=== PATIENT | male | born 1970 | race Caucasian/White ===

== ENCOUNTER → 2019-09-27 14:03 | Outpatient (CLI) | payer OTHER, SELFPAY ==
[2019-09-27 14:53] LABS: Influenza A - CEPHEID Flu A NEGATIVE (NEGATIVE); Influenza B - CEPHEID Flu B NEGATIVE (NEGATIVE)
== END ==
PROVIDERS: Visit Provider Nurse Practitioner
DX: R68.89 Other general symptoms and signs (principal)
CPT/HCPCS: 87502

== ENCOUNTER 2020-03-02 10:45 | Emergency (ER) | payer OTHER, SELFPAY ==
[2020-03-02 10:55] VITALS: BP 163/94; PULSE 79; RESP 18; TEMP 36.8; O2SAT 99; BMI 30.3
--- NOTE | 2020-03-02 10:57 | DI.CT.S_ITS ---
PROCEDURE: CT SOFT TISSUE NECK W CON INDICATIONS: (R) otitis externa with facial cellulitis, parotid mass absc TECHNIQUE: After the administration of intravenous contrast, 3.0 mm axial sections acquired from the sella to the aortic arch. Additional oblique axial 3.0 mm sections acquired through the pharynx. 3 mm thick coronal and sagittal reformats were generated. For radiation dose reduction, the following was used: automated exposure control. COMPARISON: None. FINDINGS: Image quality: Excellent. These images demonstrates skin thickening and stranding of the subcutaneous fat within the right pre-auricular region overlying the right parotid gland extending superiorly to the zygomatic fossa and the inferiorly to the submandibular region. The inflammatory changes extend deep to involve the platysma which is mildly thickened with adjacent fat stranding on both the superficial and deep aspects. There is lymphadenopathy throughout the right neck and in the suprahyoid and infrahyoid stations anteriorly and posteriorly. No left-sided lymphadenopathy. No supraclavicular lymphadenopathy. Mild engorgement of the right facial and retromandibular veins. Arterial vasculature in the neck is normal in appearance. There is no evidence of a mass or organized fluid collection. The right parotid gland itself is mildly enlarged with intra parotid lymph nodes also enlarged. There is a somewhat stranded and edematous appearance of the right parotid gland with no discrete mass. There is no evidence of parotid duct calculus, obstruction, or enlargement. Remaining major salivary glands are within normal limits. Included lung apices are clear. No acute or suspicious osseous lesion. No significant carious or periodontal disease. IMPRESSION: Inflammatory changes of the right parotid gland and adjacent periparotid spaces, including skin thickening overlying the right parotid gland along with extensive right cervical lymphadenopathy. Findings presumably represent cellulitis versus parotitis. No organized fluid collection or mass is identified. Follow-up to both clinical and radiographic resolution is recommended to help exclude a less likely but worrisome potential lymphoproliferative disorder. Dictated by: Hitesh Jose M.D. on 03/02/2020 at 12:00 Approved by: Hitesh Jose M.D. on 03/02/2020 at 12:08
[2020-03-02 11:13] LABS: Add Manual Diff / Slide Review NO; Basophils Absolute Auto 100 /uL (0-100); Basophils Percent Auto 1.1 % (0-2); Eosinophils Absolute Auto 300 /uL (0-450); Eosinophils Percent Auto 3.1 % (2-4); Hematocrit 47.3 % (41-53); Hemoglobin 16.1 g/dL (13.5-17.5); Lymphocytes Absolute Auto 2700 /uL (1100-4500); Lymphocytes Percent Auto 28.7 % (25-40); Mean Corpuscular Hemoglobin 29.6 PG (26-34); Mean Corpuscular Volume 87.1 fL (80-100); Monocytes Absolute Auto 800 /uL (0-900); Neutrophils Absolute Auto 5400 /uL (1500-7000); Neutrophils Percent Auto 58.1 % (50-75); Platelet Count 270 X10^3/uL (150-400); Red Blood Cell Count 5.43 X10^6/uL (4.5-5.9); White Blood Cell Count 9.3 X10^3/uL (4.5-11.0)
[2020-03-02 11:31] LABS: Alanine Aminotransferase 32 IU/L (<50); Albumin 4.5 g/dL (3.5-5.0); Albumin Globulin Ratio 1.4 (1.0-2.8); Alkaline Phosphatase 96 U/L (38-126); Amylase 71 U/L (30-110); Aspartate Aminotransferase 28 IU/L (17-59); BUN Creatinine Ratio 13.9 (6-22); Bilirubin Total 0.8 mg/dL (0.2-1.3); Blood Urea Nitrogen 11 mg/dL (9-20); C-Reactive Protein Quant 2.2 mg/dL (<1.0); Calcium 9.6 mg/dL (8.4-10.2); Carbon Dioxide 24 mmol/L (22-32); Chloride 105 mmol/L (98-107); Estimated Glomerular Filt Rate > 60.0 mL/min (>60); Globulin 3.3 g/dL (1.7-4.1); Glucose 97 mg/dL (70-100); HEMOLYSIS 38 (0-50); Potassium 4.3 mmol/L (3.4-5.1); Sodium 137 mmol/L (137-145); Total Protein 7.8 g/dL (6.3-8.2)
[2020-03-02 11:33] LABS: Erythrocyte Sedimentation Rate 1 MM/HR (0-15)
[2020-03-02] MEDS: KETOROLAC 60 MG/2 ML VIAL 30 MG IV (11:47)
[2020-03-02] MEDS: CLINDAMYCIN 600 MG/50 ML PIGGYBACK 50 MG IV (11:47)
[2020-03-02] MEDS: methylPREDNISolone 125 MG/2 ML VIAL IV (11:47)
--- NOTE | 2020-03-02 12:01 | PC.NURSE ---
patient complains of itching ears for the last two weeks noticed yesterday that right ear is swollen. He does not complain of pain, It's more annoying than anything, he said. He thought he cut his inner ear weed wacking. He tried to treat it with neosporin. He does not complain of any trouble swallowing or chewing.
--- NOTE | 2020-03-02 12:16 | ED_ITS ---
HPI - Ear Problem General Chief complaint: Ear Stated complaint: sent by doc regarding right ear Time Seen by Provider: 03/02/20 10:56 Source: patient Mode of arrival: Ambulatory History of Present Illness HPI Narrative: CC: Soft tissue swelling of the right lateral face HPI: The patient is a 49-year-old male who was seen and evaluated in the office and sent into the emergency department. The patient states that he has had tremendous amount of itching of his face and his ears over the last 2 weeks prior to admission. The patient states that he developed progressive swelling over his right lateral face starting yesterday. It is tender. The office called the ENT doctor stating that the parotid gland is normally harden firm and with this being soft sent the patient into the emergency department for a CT to rule out abscess. The patient denies any jaw pain ear pain sore throat trouble swallowing fever, chills or sweats. He has had no nasal drainage no change in hearing or loss of hearing. He has had no dysphagia no shortness of breath cough chest pain. He denies any nausea vomiting diarrhea change in bowel habits. He denies being a diabetic and admits to smoking cigarettes. He is having no significant pain and discomfort at this time. Related Data Previous Rx's Medication Instructions Recorded varenicline 0.5 mg (11)-1 mg (42) See Rx Instructions PO PER PKG DIR 02/04/20 tablets in a dose pack #53 each varenicline 1 mg tablet 1 mg PO BID #56 tab 02/04/20 clindamycin HCl 300 mg PO QID #28 cap 03/02/20 naproxen [Naprosyn] 500 mg PO BID PRN #20 tab 03/02/20 prednisone 40 mg PO DAILY #10 tab 03/02/20 Allergies Allergy/AdvReac Type Severity Reaction Status Date / Time Penicillins [PENICILLINS] Allergy Mild RASH Verified 03/02/20 09:21 Review of Systems Review of Systems Narrative: His review of systems were all negative except for those mentioned in the history of present illness. Patient History Surgical History S/P LASIK surgery of both eyes (Acute) Social History Smoking Status: Current every day smoker Smoking Status: Current every day smoker alcohol intake frequency: 0-2 drinks per day Substance Use Type: does not use Exam Narrative Exam Narrative: PHYSICAL EXAM: CONSTITUTIONAL: Awake, Alert, Oriented, Coherent, Cooperative in NAD. Does not appear toxic or ill. HEAD: AT/NC EENT: PERRL, FROM of eyes, no discharge, no nystagmus EARS:No drainage from the ears, Tympanic membranes intact bilaterally, clear EAC, no evidence of otitis externa. There is no tenderness to tugging on the a uricle of the right ear or pressure on the tragus. NOSE:No epistaxis or nasal drainage MOUTH:Oral mucosa is moist and pink, posterior pharynx is without erythema or exudate. No discharge from the parotid gland with pressure. NECK: Supple, no obvious JVD, Trachea is midline without stridor, questionable left submandibular lymph nodes palpable. The patient right lateral face extending from the ear all the way down almost to the angle of the mandible is diffusely swollen boggy and fluctuant as though cystic. There is no tension and minimal tenderness to palpation. There is no warmth noted. SPINE: Palpationof the cervical, Thoracic, Lumbar or Sacral spine reveals no gross deformity or tenderness. No CVA tenderness. THORAX: No deformity, retractions, chest wall tenderness. LUNGS: Clear, symmetrical breath sounds without respiratory distress. HEART: Normal heart tones, regular rhythm and rate without murmur. ABDOMEN: Soft, non-tender, without guarding, rebound, rigidity or palpable mass . EXTREMITIES: No edema, deformity, tenderness SKIN: No rash, bruising, petechiae or purpura. NEURO: Awake, alert, oriented, conversive, cranial nerves II-XII are symmetrical , moves all 4 extremities and is ambulatory. MENTAL HEALTH: Does not appear anxious or depressed. Initial Vital Signs Initial Vital Signs: Vital Signs Temperature 98.3 F 03/02/20 10:55 Pulse Rate 79 03/02/20 10:55 Respiratory Rate 18 03/02/20 10:55 Blood Pressure 163/94 H 03/02/20 10:55 Pulse Oximetry 99 03/02/20 10:55 Course Course Course Narrative: 1443IMPRESSION: Inflammatory changes of the right parotid gland and adjacent periparotid spaces, including skin thickening overlying the right parotid gland along with extensive right cervical lymphadenopathy. Findings presumably represent cellulitis versus parotitis. No organized fluid collection or mass is identified. Follow-up to both clinical an d radiographic resolution is recommended to help exclude a less likely but worrisome potential lymphoproliferative disorder. I explain to the patient the CT findings and that there was no infection in his ears and that he had a facial cellulitis with diffuse soft tissue swelling and no collection of fluid in the form of a cyst or abscess. Since he was allergic to penicillin I could not place the patient on Augmentin or administer Unasyn so he was placed on clindamycin. The patient was informed that he needed to be re-evaluated in 48 hours to be sure that he is responding to the oral antibi otics. If not he may need to be admitted to the hospital for IV antibiotics. The patient understood the explanation and plan. Orders Ordered: Discontinued Medications Clindamycin Phosphate (Cleocin) 600 mg in 50 mls @ 50 mls/hr IV NOW ONE Stop: 03/02/20 12:03 Last Infusion: 03/02/20 13:06 Dose: 0 mls/hr Documented by: Admin: 03/02/20 11:47 Dose: 50 mls/hr Documented by: BLOSSOM Ketorolac Tromethamine (Toradol) 30 mg IV NOW ONE Stop: 03/02/20 11:04 Last Admin: 03/02/20 11:47 Dose: 30 mg Documented by: BLOSSOM Methylprednisolone (Solu-Medrol 125 Mg Vial) 125 mg IV NOW ONE Stop: 03/02/20 11:17 Last Admin: 03/02/20 11:47 Dose: 125 mg Documented by: BLOSSOM Vital Signs Vital signs: Vital Signs - 8 hr 03/02/20 10:55 03/02/20 13:37 03/02/20 13:50 Temperature 98.3 F Pulse Rate 79 72 Respiratory Rate 18 17 Blood Pressure 163/94 H 174/98 H Pulse Oximetry 99 97 Medical Decision Making Lab Data Result diagrams: 03/02/20 11:03 03/02/20 11:03 Labs: Lab Results 03/02/20 03/02/20 Range/Units 11:03 11:03 WBC 9.3 (4.5-11.0) X10^3/uL RBC 5.43 (4.5-5.9) X10^6/uL Hgb 16.1 (13.5-17.5) g/dL Hct 47.3 (41-53) % MCV 87.1 (80-100) fL MCH 29.6 (26-34) PG MCHC 34.0 (30-36) % RDW 13.0 (11.6-14.8) % Plt Count 270 (150-400) X10^3/uL Neut % (Auto) 58.1 (50-75) % Lymph % (Auto) 28.7 (25-40) % [place]oshone % (Auto) 9.0 (3-14) % Eos % (Auto) 3.1 (2-4) % Baso % (Auto) 1.1 (0-2) % Neut # (Auto) 5400 (5907-6079) /uL Lymph # (Auto) 2700 (0022-0180) /uL [place]oshone # (Auto) 800 (0-900) /uL Eos # (Auto) 300 (0-450) /uL Baso # (Auto) 100 (0-100) /uL ESR 1 (0-15) MM/HR Sodium 137 (137-145) mmol/L Potassium 4.3 (3.4-5.1) mmol/L Chloride 105 (98-107) mmol/L Carbon Dioxide 24 (22-32) mmol/L BUN 11 (9-20) mg/dL Creatinine 0.79 (0.66-1.25) mg/dL Estimated GFR > 60.0 (>60) mL/min BUN/Creatinine Ratio 13.9 (6-22) Glucose 97 (70-100) mg/dL Calcium 9.6 (8.4-10.2) mg/dL Total Bilirubin 0.8 (0.2-1.3) mg/dL AST 28 (17-59) IU/L ALT 32 (<50) IU/L Alkaline Phosphatase 96 (38-126) U/L C-Reactive Protein 2.2 H (<1.0) mg/dL Total Protein 7.8 (6.3-8.2) g/dL Albumin 4.5 (3.5-5.0) g/dL Globulin 3.3 (1.7-4.1) g/dL Albumin/Globulin Ratio 1.4 (1.0-2.8) Amylase 71 (30-110) U/L Discharge Plan Departure Patient Disposition: Home Clinical Impression: Cellulitis of face Discharge Date/Time: 03/02/20 15:15 Instructions: DI for Cellulitis -- Adult Activity Restrictions/Additional Instructions: 1. Your CT scan revealed diffuse thickening of the skin and swelling of the skin overlying your parotid gland consistent with a cellulitis. You will be started on oral clindamycin as an antibiotic. 2. You will need to be seen and further evaluated by your primary care physician in 48-72 hours. 3. Apply warm compresses to the area soft tissue swelling every 2 hours as tolerated. 4. The CT scan did not reveal that there is any collection of fluid or abscess. You need to be followed and evaluated to make sure that this does not develop. 5, take the prednisone as prescribed and the antibiotic clindamycin as prescribed. If you develop profuse diarrhea on the clindamycin you need to stop the antibiotic and follow-up with your primary care physician or return to the emergency department. Prescriptions: New naproxen [Naprosyn] 500 mg tablet 500 mg PO BID PRN (Reason: pain) Qty: 20 RF: 0 prednisone 20 mg tablet 40 mg PO DAILY Qty: 10 RF: 0 clindamycin HCl 300 mg capsule 300 mg PO QID Qty: 28 RF: 0 No Action Chantix Starting Month Box 0.5 mg (11)- 1 mg (42) tablets,dose pack See Rx Instructions PO PER PKG DIR Qty: 53 RF: 0 Chantix Continuing Month Box 1 mg tablet 1 mg PO BID Qty: 56 RF: 2 Referrals: Tristian Akers MD [Primary Care Provider] -
[2020-03-02 13:37] VITALS: BP 174/98; PULSE 72; O2SAT 97
[2020-03-02 13:50] VITALS: RESP 17
[2020-03-02 15:12] VITALS: BP 146/95; PULSE 74; RESP 14; O2SAT 96
== END 2020-03-02 15:15 | disposition home or self-care (01) ==
PROVIDERS: Emergency Provider Emergency Medicine; PCP Internal Medicine
DX: L03.211 Cellulitis of face (principal)
CPT/HCPCS: 36415; 70491; 80053; 82150; 85025; 85651; 86140; 96365; 96375; 99284; J1885; J2930

== ENCOUNTER 2020-05-12 17:04 | Emergency (ER) | payer OTHER, SELFPAY ==
[2020-05-12 17:25] VITALS: BP 157/94; PULSE 85; RESP 16; TEMP 36.3; O2SAT 97
--- NOTE | 2020-05-12 18:30 | ED.SKABFB ---
HPI - Skin/Abscess/Foreign Bdy General Chief complaint: Skin/Abscess/Foreign Body Stated complaint: states cellulitis on his ears Time Seen by Provider: 05/12/20 17:50 Source: patient Mode of arrival: Ambulatory Limitations: no limitations History of Present Illness HPI narrative: 49-year-old male smoker with history of hyperlipidemia presents with a chief complaint of intensely itchy ears bilaterally with pain and swelling of his right ear and right side of his face. He admits to a prior history of symptoms relatively similar to this in which he was seen and diagnosed with facial cellulitis. He had been treated earlier this summer at our facility and states that in that circumstance his symptoms started with itching ears hence his presentation today. He has had no systemic findings such as fever, chills nor nausea or vomiting. He states that his right ear is much more bothersome the left and that he has had drainage from his right ear. Also, he has developed some pain, swelling and redness of his right cheek just anterior to the ear which is similar to the episode he had earlier this summer. He denies any injury. He has had no runny nose, sore throat or cough. He denies chest pain or shortness of breath. MD complaint: rash Onset (ago): day(s) Tetanus up to date: yes Location: face Severity: moderate Quality: burning, aching, constant and pruritic Pain Consistency: constant Relieving factors: none Exacerbating factors: none Context: none Associated symptoms: denies other symptoms Treatments prior to arrival: none Related Data Previous Rx's Medication Instructions Recorded varenicline 0.5 mg (11)-1 mg (42) See Rx Instructions PO PER PKG DIR 02/04/20 tablets in a dose pack #53 each varenicline 1 mg tablet 1 mg PO BID #56 tab 02/04/20 clindamycin HCl 300 mg PO QID #28 cap 03/02/20 naproxen [Naprosyn] 500 mg PO BID PRN #20 tab 03/02/20 prednisone 40 mg PO DAILY #10 tab 03/02/20 clindamycin HCl 300 mg PO Q6H 7 Days #28 cap 05/12/20 ofloxacin 10 drop EAR-BOTH DAILY 7 Days #10 05/12/20 ml prednisone See Rx Instructions .ROUTE 05/12/20 .COMPLEX #30 tab Allergies Allergy/AdvReac Type Severity Reaction Status Date / Time Penicillins [PENICILLINS] Allergy Mild RASH Verified 05/12/20 17:29 Review of Systems Constitutional Constitutional: Denies chills, Denies fatigue, Denies fever(s), Denies frequent falls, Denies lethargy and Denies weakness Eyes Eyes: Denies change in vision, Denies eye discharge, Denies irritation and Denies loss of vision ENT Ears, Nose, Mouth, and Throat: Denies change in voice, Denies dizziness, Reports ear discharge, Reports otalgia, Reports facial pain, Denies neck pain, Denies sore throat and Denies throat swelling Cardiovascular Cardiovascular: Denies chest pain, Denies irregular heart rhythm, Denies lightheadedness, Denies palpitations, Denies dyspnea, Denies dyspnea on exertion and Denies orthopnea Respiratory Respiratory: Denies cough, Denies dyspnea, Denies dyspnea on exertion and Denies wheezing Gastrointestinal Gastrointestinal: Denies abdominal pain, Denies change in bowel habits, Denies diarrhea, Denies nausea and Denies vomiting Musculoskeletal Musculoskeletal: Denies neck pain and Denies numbness Integumentary/Breasts Skin/Breast: Denies pruritus, Reports erythema, Denies rash, Reports skin swelling and Denies wounds Neurologic Neurologic: Denies behavioral changes, Denies confusion, Denies dizziness, Denies frequent falls, Denies loss of vision, Denies numbness and Denies weakness Psychiatric Psychiatric: Denies anxiety, Denies behavioral changes, Denies confusion, Denies depression, Denies homicidal ideation and Denies suicidal ideation Endocrine Endocrine: Denies fatigue, Denies flushing and Denies palpitations Hematologic/Lymphatic Hematologic/Lymphatic: Denies easy bruising Allergic/Immunologic Allergic/Immunologic: Denies urticaria, Denies throat swelling and Denies wheezing Patient History Surgical History S/P LASIK surgery of both eyes (Acute ~2018) Family History Father History of respiratory failure Social History Smoking Status: Current every day smoker Smoking Status: Current every day smoker alcohol intake frequency: 0-2 drinks per day Substance Use Type: does not use Exam Narrative Exam Narrative: GENERAL: [49] year old patient appears stated age. Well-nourished, well-developed patient, in mild distress. HEAD: Atraumatic. Normocephalic. Mild swelling, pain and redness overlying the angle of the jaw just anterior to his right ear. No tenderness overlying mastoid or boggy sensation upon palpation EYES: Pupils equal round and reactive. Extraocular motions intact. No scleral icterus. No injection or drainage. ENT: Left external auditory canal is patent without evidence of swelling or drainage. Tympanic membrane is clear with normal landmarks. Right external auditory canal is edematous, narrow with purulence drainage and debris. Tympanic membrane is clear and intact. No blood noted. No evidence of perforated tympanic membrane. Nose without bleeding, purulent drainage. Throat without erythema, tonsillar hypertrophy or exudate. Airway patent. NECK: Trachea midline. Non tender CARDIOVASCULAR: Regular rate and rhythm without murmurs, gallops, or rubs. RESPIRATORY: Clear to auscultation. Breath sounds equal bilaterally. No wheezes, rales, or rhonchi. GASTROINTESTINAL: Abdomen soft, non-tender, nondistended. EXTREMITIES: No edema or joint tenderness. BACK: Nontender without deformity or crepitance. No flank tenderness. NEURO: AOx3. SKIN: No rash or erythema of visible areas Initial Vital Signs Initial Vital Signs: Vital Signs Temperature 97.3 F L 05/12/20 17:25 Pulse Rate 85 05/12/20 17:25 Respiratory Rate 16 05/12/20 17:25 Blood Pressure 157/94 H 05/12/20 17:25 Pulse Oximetry 97 05/12/20 17:25 Course Vital Signs Vital signs: Vital Signs - 8 hr 05/12/20 17:25 Temperature 97.3 F L Pulse Rate 85 Respiratory Rate 16 Blood Pressure 157/94 H Pulse Oximetry 97 MDM - Skin/Abscess/Foreign Bdy MDM Narrative Medical decision making narrative: Patient very stable with reassuring exam. Evidence of acute otitis externa with associated facial cellulitis. Appears to be a bit of a different presentation than his episode earlier in the summer which required IV and CT. He is given ofloxacin for otitis and clinda for facial cellulitis. Return precautions given and questions answered to his apparent satisfaction. Discharge Plan Departure Patient Disposition: Home Clinical Impression: Cellulitis of face Otitis externa Qualifiers: Otitis externa type: unspecified type Chronicity: acute Laterality: right Qualified Code(s): H60.501 - Unspecified acute noninfective otitis externa, right ear Discharge Date/Time: 05/12/20 18:54 Instructions: DI for Cellulitis -- Adult, DI for Otitis Externa Activity Restrictions/Additional Instructions: *You have been diagnosed with [right otitis externa with some surrounding cellulitis] *What to do: *Take medications as directed: Prescription electronically sent to [facility] *Follow up with your primary care provider in 2-3 days, call for an appointment. Let them know you were seen in the Emergency Department and that we ask that you be seen in follow up *Return to ER if you should have any new, worsening or concerning symptoms Prescriptions: New prednisone 10 mg tablet See Rx Instructions .ROUTE .COMPLEX Qty: 30 RF: 0 clindamycin HCl 300 mg capsule 300 mg PO Q6H 7 Days Qty: 28 RF: 0 ofloxacin 0.3 % drops 10 drop EAR-BOTH DAILY 7 Days Qty: 10 RF: 0 No Action Chantix Starting Month Box 0.5 mg (11)- 1 mg (42) tablets,dose pack See Rx Instructions PO PER PKG DIR Qty: 53 RF: 0 Chantix Continuing Month Box 1 mg tablet 1 mg PO BID Qty: 56 RF: 2 naproxen [Naprosyn] 500 mg tablet 500 mg PO BID PRN (Reason: pain) Qty: 20 RF: 0 prednisone 20 mg tablet 40 mg PO DAILY Qty: 10 RF: 0 clindamycin HCl 300 mg capsule 300 mg PO QID Qty: 28 RF: 0 Referrals: Tristian Akers MD [Primary Care Provider] -
[2020-05-12 18:54] VITALS: BP 138/76; PULSE 88; RESP 16; TEMP 36.8; O2SAT 100
== END 2020-05-12 18:54 | disposition home or self-care (01) ==
PROVIDERS: Emergency Provider Emergency Medicine; PCP Internal Medicine
DX: H60.501 Unspecified acute noninfective otitis externa, right ear (principal); L03.211 Cellulitis of face
CPT/HCPCS: 99281

== ENCOUNTER 2023-05-11 09:00 | Emergency (ER) | payer OTHER, SELFPAY ==
[2023-05-11] VITALS (14 sets, daily range): BP systolic 116–213; BP diastolic 60–116; PULSE 66–83; RESP 16–29; TEMP 36–36.9; O2SAT 91–97; BMI 32.1
--- NOTE | 2023-05-11 09:20 | DI.CT.S_ITS ---
PROCEDURE: CT ABDOMEN PELVIS W CON INDICATIONS: midepigastric abd pain, severe TECHNIQUE: After the administration of intravenous contrast, axial sections acquired from the lung bases to the pubic symphysis. Coronal and sagittal reformats were performed. For radiation dose reduction, the following was used: automated exposure control, adjustment of mA and/or kV according to patient size. COMPARISON: None. FINDINGS: Image quality: Excellent. Lung bases: Unremarkable. Heart: No significant findings. ABDOMEN: Liver: Decreased in attenuation consistent with hepatic steatosis. Focal fatty sparing adjacent to the gallbladder. Right hepatic simple cyst measuring 2.8 cm. Gallbladder: Unremarkable. Biliary ducts: Unremarkable. Pancreas: Unremarkable. Spleen: Unremarkable. Adrenal Glands: Unremarkable. Kidneys and Ureters: Mild right hydroureteronephrosis with a stone in the distal ureter measuring 4 mm (). There is periureteral and right perinephric stranding. Left kidney is normal in appearance without stones or hydronephrosis. Stomach and Bowel: Stomach, small bowel loops, and colon are unremarkable. Diverticulosis without evidence of acute diverticulitis. Normal appendix. Peritoneum: No abnormal intraperitoneal fluid. No free air. Ventral Wall: No hernias. Abdominal Nodes: No retroperitoneal or mesenteric adenopathy by size criteria. Vessels: Aorta and inferior vena cava are normal in size. PELVIS: Pelvic Organs: Unremarkable. Bladder: Unremarkable. Pelvic Nodes: No enlarged lymph nodes. Miscellaneous: Small bilateral inguinal hernias containing fat. Bones: Degenerative changes of the spine. IMPRESSION: 1. Obstructing 4 mm stone within the distal right ureter resulting in mild right hydroureteronephrosis. 2. Hepatic steatosis. 3. Diverticulosis without evidence of acute diverticulitis. Dictated by: Benson Shine M.D. on 05/11/2023 at 10:39 Approved by: Benson Shine M.D. on 05/11/2023 at 10:44
--- NOTE | 2023-05-11 09:21 | ED_ITS ---
HPI - Abdominal Pain General Chief Complaint: Abdominal Pain Stated Complaint: severe abd pain Time Seen by Provider: 05/11/23 09:01 History of Present Illness HPI narrative: 52-year-old male presents for evaluation of midepigastric and right-sided abdominal pain. Pain is sharp, does not radiate, woke him up from sleep. No medications taken prior to arrival. Related Data Previous Rx's Medication Instructions Recorded varenicline 0.5 mg (11)-1 mg (42) See Rx Instructions PO PER PKG DIR 02/04/20 tablets in a dose pack (Chantix #53 ea Starting Month Box) varenicline 1 mg tablet (Chantix 1 mg PO BID #56 tabs 02/04/20 Continuing Month Box) clindamycin HCl 300 mg capsule 300 mg PO QID #28 caps 03/02/20 naproxen 500 mg tablet (Naprosyn) 500 mg PO BID PRN pain #20 tabs 03/02/20 prednisone 20 mg tablet 40 mg PO DAILY #10 tabs 03/02/20 prednisone 10 mg tablet See Rx Instructions .Route 05/12/20 .COMPLEX #30 tabs sulfamethoxazole 800 1 tab PO Q12H #14 tabs 12/31/22 mg-trimethoprim 160 mg tablet (Bactrim DS) ondansetron 4 mg disintegrating 4 mg PO Q8H PRN nausea and 05/11/23 tablet vomiting #30 tabs oxycodone-acetaminophen 5 mg-325 1 tab PO Q4-6H PRN pain #20 tabs 05/11/23 mg tablet tamsulosin 0.4 mg capsule 0.4 mg PO DAILY #30 caps 05/11/23 Allergies Allergy/AdvReac Type Severity Reaction Status Date / Time Penicillins [PENICILLINS] Allergy Mild RASH Verified 05/11/23 09:29 Review of Systems Review of Systems Narrative: CONSTITUTIONAL- Denies: fever, chills, fatigue HEENT- Denies: sore throat, nosebleed, vision changes RESPIRATORY- Denies: shortness of breath, cough, wheezing CARDIAC- Denies: chest pain, edema, orthopnea GI-reports: Abdominal pain, nausea Denies: vomiting, constipation, diarrhea - Denies: frequency, dysuria, hematuria, flank pain MSK- Denies: extremity pain, extremity swelling, joint pain, joint swelling SKIN- Denies: rash, itching, burn, swelling NEUROLOGICAL- Denies: headache, numbness, weakness, dizziness PSYCHIATRIC- Denies: anxiety, depression, suicidal ideation, homicidal ideation Patient History Surgical History S/P LASIK surgery of both eyes (~2018) Family History Father History of respiratory failure Social History Smoking Status: Current every day smoker Smoking Status: Current every day smoker alcohol intake frequency: 0-2 drinks per day Substance Use Type: does not use Exam Initial Vital Signs Initial Vital Signs: Vital Signs Temperature 96.8 F L 05/11/23 09:10 Pulse Rate 83 05/11/23 09:10 Respiratory Rate 16 05/11/23 09:10 Blood Pressure 213/116 H 05/11/23 09:10 Pulse Oximetry 96 05/11/23 09:10 Oxygen Delivery Method Room Air 05/11/23 09:10 Const: Awake, alert, uncomfortable, in pain Eyes: PERRL, EOMI, conjunctiva normal ENT: Atraumatic, dentition normal, mucous membranes moist Cardiac: regular rate, regular rhythm RESP: unlabored, clear bilaterally, no wheezing GI: Atraumatic, soft, midepigastric tenderness to deep palpation without rebound or guarding MSK: Atraumatic, full range of motion, pulses equal Skin: Warm, Dry, intact, no rashes Neuro: AO x3, CN II-XII grossly intact, moves all extremities Psych: affect normal, mood normal, not suicidal, not homicidal Course Course Course Narrative: Uncomfortable but nontoxic appearing patient presenting for the above complaint. Patient does smoke cigarettes, no frequent alcohol use. We will obtain labs and CT imaging. Pain medications and fluids ordered. Orders Ordered: ED Orders 05/11/23 09:20 CT abdomen pelvis w con Stat EKG-12 Lead Stat 05/11/23 09:22 Complete Blood Count AUTO DIFF Stat Comprehensive Metabolic Panel Stat Lipase Stat 05/11/23 10:45 UA Complete [Urinalysis and Microscopic] Stat Urine Culture Stat Discontinued Medications Sodium Chloride (Normal Saline 0.9%) 1,000 mls @ 1,000 mls/hr IV BOLUS ONE Stop: 05/11/23 10:19 Last Infusion: 05/11/23 11:25 Dose: 0 mls/hr Documented By: Admin: 05/11/23 09:29 Dose: 1,000 mls/hr Documented By: CHARLY Ketorolac Tromethamine (Ketorolac 30 Mg/Ml Vial) 15 mg IV NOW ONE Stop: 05/11/23 10:27 Last Admin: 05/11/23 10:31 Dose: 15 mg Documented By: ARASELI Ketorolac Tromethamine (Ketorolac 30 Mg/Ml Vial) 15 mg IV NOW ONE Stop: 05/11/23 11:16 Last Admin: 05/11/23 11:24 Dose: 15 mg Documented By: ANTONIO Morphine Sulfate (Morphine 4 Mg/Ml Inj) 4 mg IV NOW ONE Stop: 05/11/23 09:21 Last Admin: 05/11/23 09:28 Dose: 4 mg Documented By: CHARLY Morphine Sulfate (Morphine 4 Mg/Ml Inj) 4 mg IV NOW ONE Stop: 05/11/23 11:16 Last Admin: 05/11/23 11:24 Dose: 4 mg Documented By: ANTONIO Ondansetron HCl (Ondansetron 4 Mg/2 Ml Inj) 4 mg IV NOW ONE Stop: 05/11/23 09:21 Last Admin: 05/11/23 09:28 Dose: 4 mg Documented By: CHARLY Reevaluation(s) Reevaluation #1: Laboratory work is reviewed, unremarkable. Pending CT imaging, preliminary review shows small stone on the right-hand side. Patient continuing to have pain, we will give Toradol. Reevaluation #2: Pain improved with Toradol. CT shows 4 mm stone on the right-hand side. Pain is controlled, kidney function normal. Patient and his were advised of all lab and imaging results bedside. Patient to be discharged with pain medications, nausea medications, Flomax. Counseled on the importance of following up with Urology. Told to return if pain uncontrollable or unable to tolerate p.o.. Vital Signs Vital signs: Vital Signs - 8 hr 05/11/23 09:10 05/11/23 09:22 05/11/23 09:24 Temperature 96.8 F L Pulse Rate 83 83 82 Respiratory Rate 16 Blood Pressure 213/116 H Pulse Oximetry 96 97 96 Oxygen Delivery Method Room Air 05/11/23 09:24 05/11/23 09:31 05/11/23 09:33 Temperature Pulse Rate 80 79 Respiratory Rate Blood Pressure 177/108 H Pulse Oximetry 97 95 Oxygen Delivery Method 05/11/23 09:33 05/11/23 09:45 05/11/23 09:45 Temperature Pulse Rate 66 Respiratory Rate 19 Blood Pressure 136/65 116/60 Pulse Oximetry 91 Oxygen Delivery Method Room Air 05/11/23 10:00 05/11/23 10:01 05/11/23 10:01 Temperature Pulse Rate 71 73 Respiratory Rate 24 21 Blood Pressure 142/79 H Pulse Oximetry 92 92 Oxygen Delivery Method 05/11/23 10:30 05/11/23 10:30 05/11/23 10:42 Temperature Pulse Rate 77 74 Respiratory Rate 29 H 19 Blood Pressure 156/86 H Pulse Oximetry 97 96 Oxygen Delivery Method 05/11/23 10:42 05/11/23 11:00 05/11/23 11:00 Temperature Pulse Rate 70 Respiratory Rate 18 Blood Pressure 172/97 H 182/96 H Pulse Oximetry 95 Oxygen Delivery Method 05/11/23 11:29 05/11/23 11:29 05/11/23 11:30 Temperature Pulse Rate 69 Respiratory Rate 19 Blood Pressure 170/91 H 168/89 H Pulse Oximetry 94 Oxygen Delivery Method 05/11/23 11:30 05/11/23 12:13 Temperature 98.4 F Pulse Rate 69 73 Respiratory Rate 18 18 Blood Pressure 145/78 H Pulse Oximetry 94 97 Oxygen Delivery Method Room Air MDM - Abdominal Pain Lab Data 05/11/23 09:22 05/11/23 09:22 Labs: Lab Results 05/11/23 05/11/23 05/11/23 Range/Units 09:22 09:22 10:45 WBC 10.1 (4.5-11.0) X10^3/uL RBC 5.65 (4.5-5.9) X10^6/uL Hgb 16.5 (13.5-17.5) g/dL Hct 48.7 (41-53) % MCV 86.2 (80-100) fL MCH 29.3 (26-34) PG MCHC 34.0 (30-36) % RDW 13.3 (11.6-14.8) % Plt Count 290 (150-400) X10^3/uL Neut % (Auto) 65.4 (50-75) % Lymph % (Auto) 22.5 L (25-40) % [place] % (Auto) 8.2 (3-14) % Eos % (Auto) 3.1 (2-4) % Baso % (Auto) 0.8 (0-2) % Neut # (Auto) 6600 (1581-6127) /uL Lymph # (Auto) 2300 (7900-9622) /uL [place] # (Auto) 800 (0-900) /uL Eos # (Auto) 300 (0-450) /uL Baso # (Auto) 100 (0-100) /uL Sodium 138 (137-145) mmol/L Potassium 4.2 (3.4-5.1) mmol/L Chloride 107 (98-107) mmol/L Carbon Dioxide 22 (22-32) mmol/L BUN 16 (9-20) mg/dL Creatinine 1.04 (0.66-1.25) mg/dL Estimated GFR > 60 (>60) mL/min BUN/Creatinine Ratio 15.4 (6-22) Glucose 120 H (70-100) mg/dL Calcium 9.6 (8.4-10.2) mg/dL Total Bilirubin 0.5 (0.2-1.3) mg/dL AST 28 (17-59) IU/L ALT 39 (<50) IU/L Alkaline Phosphatase 90 (38-126) U/L Total Protein 8.1 (6.3-8.2) g/dL Albumin 4.5 (3.5-5.0) g/dL Globulin 3.6 (1.7-4.1) g/dL Albumin/Globulin Ratio 1.3 (1.0-2.8) Lipase 220 (23-300) U/L Urine Color Yellow Urine Appearance Sl cloudy Urine pH 6.0 (4.5-8.0) Ur Specific [place] 1.010 (1.000-1.035) Urine Protein Trace H (Negative) Urine Glucose (UA) Negative (Negative) g/dL Urine Ketones Negative (NEGATIVE) Urine Occult Blood 3+ H (Negative) Urine Nitrate Negative (Negative) Urine Bilirubin Negative (NEGATIVE) Urine Urobilinogen 0.2 (0.2) E.U./dL Ur Leukocyte Esterase Negative (NEGATIVE) Urine RBC >100/hpf H (0-5/HPF) Urine WBC 1-5/hpf (0-5/HPF) Ur Squamous Epith Cells 0-1 /hpf (0-5/HPF) Amorphous Sediment 1+ Urine Bacteria None seen (None) Ur Culture Indicated? Specimen cultured Discharge Plan Departure Patient Disposition: Home Clinical Impression: Calculus of kidney, Constipation Instructions: Constipation, DI for Kidney Stones Prescriptions: New oxycodone-acetaminophen 5-325 mg tablet 1 tab PO Q4-6H PRN (Reason: pain) Qty: 20 0RF tamsulosin 0.4 mg capsule 0.4 mg PO DAILY Qty: 30 0RF ondansetron 4 mg tablet,disintegrating 4 mg PO Q8H PRN (Reason: nausea and vomiting) Qty: 30 0RF No Action sulfamethoxazole-trimethoprim [Bactrim DS] 800-160 mg tablet 1 tab PO Q12H Qty: 14 0RF Chantix Starting Month Box 0.5 mg (11)- 1 mg (42) tablets,dose pack See Rx Instructions PO PER PKG DIR Qty: 53 0RF Rx Instructions: PO PER PKG DIR Chantix Continuing Month Box 1 mg tablet 1 mg PO BID Qty: 56 2RF prednisone 10 mg tablet See Rx Instructions .ROUTE .COMPLEX Qty: 30 0RF Rx Instructions: Day 1,2,3: 40mg PO Daily Day 4,5,6: 30mg PO Daily Day 7,8,9: 20mg PO Daily Day 10,11,12: 10mg PO Daily #30 naproxen [Naprosyn] 500 mg tablet 500 mg PO BID PRN (Reason: pain) Qty: 20 0RF prednisone 20 mg tablet 40 mg PO DAILY Qty: 10 0RF clindamycin HCl 300 mg capsule 300 mg PO QID Qty: 28 0RF Rx Instructions: Take until gone or you develop diarrhea Referrals: Tristian Akers MD [Primary Care Provider] - Stand Alone Forms: Patient Portal/API
[2023-05-11 09:27] LABS: Add Manual Diff / Slide Review NO; Basophils Absolute Auto 100 /uL (0-100); Basophils Percent Auto 0.8 % (0-2); Eosinophils Absolute Auto 300 /uL (0-450); Eosinophils Percent Auto 3.1 % (2-4); Hematocrit 48.7 % (41-53); Hemoglobin 16.5 g/dL (13.5-17.5); Lymphocytes Absolute Auto 2300 /uL (1100-4500); Lymphocytes Percent Auto 22.5 % (25-40); Mean Corpuscular Hemoglobin 29.3 PG (26-34); Mean Corpuscular Volume 86.2 fL (80-100); Monocytes Absolute Auto 800 /uL (0-900); Monocytes Percent Auto 8.2 % (3-14); Neutrophils Absolute Auto 6600 /uL (1500-7000); Neutrophils Percent Auto 65.4 % (50-75); Platelet Count 290 X10^3/uL (150-400); Red Blood Cell Count 5.65 X10^6/uL (4.5-5.9); Red Cell Distribution Width 13.3 % (11.6-14.8); White Blood Cell Count 10.1 X10^3/uL (4.5-11.0)
[2023-05-11] MEDS: ONDANSETRON 4 MG/2 ML INJ IV (09:28)
[2023-05-11] MEDS: MORPHINE 4 MG/ML INJ IV ×2 (09:28→11:24)
[2023-05-11] MEDS: SODIUM CHLORIDE 0.9% 1,000 ML 1000 ML IV (09:29)
[2023-05-11 09:39] LABS: Alanine Aminotransferase 39 IU/L (<50); Albumin 4.5 g/dL (3.5-5.0); Albumin Globulin Ratio 1.3 (1.0-2.8); Alkaline Phosphatase 90 U/L (38-126); Aspartate Aminotransferase 28 IU/L (17-59); BUN Creatinine Ratio 15.4 (6-22); Bilirubin Total 0.5 mg/dL (0.2-1.3); Blood Urea Nitrogen 16 mg/dL (9-20); Calcium 9.6 mg/dL (8.4-10.2); Carbon Dioxide 22 mmol/L (22-32); Chloride 107 mmol/L (98-107); Estimated Glomerular Filt Rate > 60 mL/min (>60); Globulin 3.6 g/dL (1.7-4.1); Glucose 120 mg/dL (70-100); HEMOLYSIS < 15 (0-50); Lipase 220 U/L (23-300); Potassium 4.2 mmol/L (3.4-5.1); Sodium 138 mmol/L (137-145); Total Protein 8.1 g/dL (6.3-8.2)
[2023-05-11] MEDS: KETOROLAC 30 MG/ML VIAL 15 MG IV ×2 (10:31→11:24)
[2023-05-11 10:48] LABS: Appearance Urine UA SL CLOUDY; Bilirubin Urine UA NEGATIVE (NEGATIVE); Color Urine UA YELLOW; Glucose Urine UA NEGATIVE (Negative); Ketones Urine UA NEGATIVE (NEGATIVE); Leukocyte Esterase Urine UA NEGATIVE (NEGATIVE); Nitrite Urine UA NEGATIVE (Negative); Occult Blood Urine UA 3+ (Negative); Protein Urine UA TRACE (Negative); Urobilinogen Urine UA 0.2 E.U./dL (0.2)
[2023-05-11 10:57] LABS: Amorphous Sediment Urine 1+; Bacteria Urine None Seen; Culture Indicated Urine Specimen Cultured; RBC Urine >100/HPF (0-5/HPF); Squamous Epithelial Cell Urine 0-1 /HPF (0-5/HPF); WBC Urine 1-5/HPF (0-5/HPF)
== END 2023-05-11 12:14 | disposition home or self-care (01) ==
PROVIDERS: Emergency Provider Emergency Medicine; PCP Internal Medicine
DX: K59.00 Constipation, unspecified (principal); N20.0 Calculus of kidney; R10.9 Unspecified abdominal pain
CPT/HCPCS: 36415; 74177; 80053; 81001; 83690; 85025; 87086; 93005; 99284; J1885; J2270; J2405; Q9967